=== PATIENT | female | born 1950 | race Caucasian/White ===

== ENCOUNTER → 2023-07-02 09:17 | Outpatient (REF) | payer MEDICARE, MEDICAID, SELFPAY | LOC: WDC 09:17 | PROVIDERS: ATTENDING PHYSICIAN Nurse Practitioner | DX: R92.8 Other abnormal and inconclusive findings on diagnostic imaging of breast (principal) | CPT/HCPCS: 76642 ==

== ENCOUNTER → 2024-08-17 09:47 | Outpatient (REF) | payer MEDICARE, MEDICAID, SELFPAY | LOC: RAD 09:47 | PROVIDERS: ATTENDING PHYSICIAN Hospitalist; FAMILY PHYSICIAN Nurse Practitioner | DX: M25.552 Pain in left hip (principal) | CPT/HCPCS: 73502 ==

== ENCOUNTER → 2024-09-06 13:53 | Outpatient (REF) | payer MEDICARE, MEDICAID, SELFPAY | LOC: WDC 13:53 | PROVIDERS: ATTENDING PHYSICIAN Nurse Practitioner | DX: Z12.31 Encounter for screening mammogram for malignant neoplasm of breast (principal) | CPT/HCPCS: 77063; 77067 ==

== ENCOUNTER → 2024-09-20 13:51 | Outpatient (REF) | payer MEDICARE, MEDICAID, SELFPAY | LOC: RAD 13:51 | PROVIDERS: ATTENDING PHYSICIAN Hospitalist | DX: M81.0 Age-related osteoporosis without current pathological fracture (principal) | CPT/HCPCS: 77080 ==

== ENCOUNTER → 2025-02-25 13:02 | Outpatient (REF) | payer MEDICARE, MEDICAID, SELFPAY | LOC: HWRAD 13:02 | PROVIDERS: ATTENDING PHYSICIAN Nurse Practitioner | DX: M89.8X8 Other specified disorders of bone, other site (principal) | CPT/HCPCS: 71250 ==

== ENCOUNTER 2025-03-25 06:37 | Day surgery (SDC) | payer MEDICARE, MEDICAID, SELFPAY ==
[2025-03-25 11:34] VITALS: BMI 24.7
[2025-03-25] MEDS: TYLENOL 1000 MG PO (11:45)
[2025-03-25 11:47] VITALS: BP 139/77
[2025-03-25 12:10] LABS: Glucose - Point of Care 107 mg/dl (70-99)
[2025-03-25] MEDS: NORMOSOL-R/PLASMALYTE-A 1000 IV (12:11)
[2025-03-25 14:35] VITALS: BP 116/63
[2025-03-25 14:45] VITALS: BP 115/61
--- NOTE | 2025-03-25 14:45 | W.IMMPOSTOP ---
Surgical Immed Post Op Note
-
Primary Surgeon: Arvin
Assisting Surgeon: None
Pre-op Diagnosis: Right breast mass
Post-op Diagnosis: Right breast mass
Procedure Performed: Excisional biopsy right breast mass
Anesthesia Type: TIVA
Specimen / Cultures: Right breast mass
Estimated Blood Loss: 4cc
Complications: None
Operative Findings: None
--- NOTE | 2025-03-25 14:46 | OR.RPT ---
Operative Report
Operative Report
Operative date: 03/25/2025
Surgeon: Arvin
Preoperative diagnosis: Right breast mass
Procedure: Excisional biopsy right breast mass
Postoperative diagnosis: Right breast mass
Procedure: Excisional biopsy right breast mass
The patient is a 74-year-old female who had a palpable solid right breast mass that was painful and and she presents for excisional biopsy. Patient presented to same-day surgical services unit. She was prepped and verified site and procedure. DVT
and antibiotic prophylaxis were provided and she was transferred to the operating room. In the supine position intravenous sedation was delivered. The right breast was prepped and draped in usual sterile fashion and all team members performed an
appropriate timeout procedure.
Tissue was anesthetized with 1% lidocaine plain and a curvilinear incision was made overlying the palpable mass which was slightly adherent to the skin. Therefore a wedge of overlying skin was removed as well. The mass was removed using tenotomy
scissores and/or the cautery to separate the mass from surrounding tissue. The mass was consistent with an inclusion cyst of the skin. Careful inspection was made of all dissected tissue and a careful inspection was performed to make sure there
was no residual cyst wall or content. Hemostasis was maintained with the cautery. Marcaine 0.5% plain was instilled into all tissues and the wound was closed using simple interrupted 2-0 Polysorb on deep tissue and skin was closed with simple
interrupted 3-0 Polysorb on subcutaneous tissue and a running subcuticular 4 Monocryl was used on skin. Some additional external simple sutures were applied for extra support as well. A sterile compressive dressing was applied all sponge needle
and instrument counts were correct and the patient was transferred to same-day surgical services for recovery
([id number])
[2025-03-25 15:00] VITALS: BP 123/68
[2025-03-25 15:12] VITALS: BP 139/67
[2025-03-25 15:15] VITALS: BP 118/66
== END 2025-03-25 16:15 | disposition home or self-care (01) ==
LOC: SDS 06:37
PROVIDERS: ATTENDING PHYSICIAN Surgery
DX: L72.0 Epidermal cyst (principal); N63.12 Unspecified lump in the right breast, upper inner quadrant
CPT/HCPCS: 19120; 82962; 88307

== ENCOUNTER → 2025-04-19 10:06 | Outpatient (REF) | payer MEDICARE, MEDICAID, SELFPAY | LOC: HWRCS 10:06 | PROVIDERS: ATTENDING PHYSICIAN Nurse Practitioner | DX: R60.0 Localized edema (principal) | CPT/HCPCS: 93306 ==